=== PATIENT | male | born 2000 | race African-American/Black ===

== ENCOUNTER 2020-06-29 16:43 | Emergency (ER) | payer OTHER ==
[~2020-06-29] VITALS: Ht 193 cm; Wt 84.5 kg
[2020-06-29] MEDS ORDERED: IBUPROF (16:51)
--- NOTE | 2020-06-29 17:31 | REPVR ---
PROCEDURE INFORMATION: Exam: XR Left Ankle Exam date and time: 06/29/2020 5:18 PM Age: 19 years old Clinical indication: Pain; Ankle; Left; Additional info: Rolled it in a hole TECHNIQUE: Imaging protocol: XR Left ankle. Views: 3 or more views. COMPARISON: No relevant prior studies available. FINDINGS: Bones/joints: No bone or joint abnormality. No fracture or dislocation. Soft tissues: Mild swelling of the anterior ankle soft tissues. No ankle joint effusion. IMPRESSION: No fracture. Electronically signed by: Gerard Anaya On 06/29/2020 17:30:38 PM
[2020-06-29 18:30] VITALS: BP 121/72
== END 2020-06-29 18:35 | disposition home or self-care (01) ==
LOC: M ED 16:43
DX: S93.402A Sprain of unspecified ligament of left ankle, initial encounter (principal); X50.0XXA Overexertion from strenuous movement or load, initial encounter; Y99.0 Civilian activity done for income or pay; F17.200 Nicotine dependence, unspecified, uncomplicated